=== PATIENT | female | born 2000 | race Caucasian/White ===

== ENCOUNTER 2018-09-30 08:57 | Emergency (ER) | payer OTHER ==
[~2018-09-30] VITALS: Ht 167.6 cm; Wt 94.8 kg
[2018-09-30 09:03] VITALS: Ht 167.6 cm; Wt 94.8 kg
[2018-09-30 10:15] LABS: BASOPHIL % 0.4 % (0-2); PLATELET COUNT 329 x10^3mcL (130-400); RED CELL DISTRIBUTION WIDTH 12.9 % (11.5-14.5)
[2018-09-30 10:17] LABS: T3 TOTAL 1.88 ng/mL
[2018-09-30 10:32] LABS: FREE T4 0.86 ng/dL (0.76-1.46); T4(THYROXINE) 11.8 ug/dL (4.7-13.3)
[2018-09-30 13:10] VITALS: BP 122/75
== END 2018-09-30 13:09 | disposition home or self-care (01) ==
LOC: ED 08:57
PROVIDERS: Emergency Medicine
DX: N93.8 Other specified abnormal uterine and vaginal bleeding (principal)
CPT/HCPCS: 36415; 84439